=== PATIENT | female | born 1990 | race Two or more races ===

== ENCOUNTER 2021-02-15 18:11 | Emergency (ER) | payer OTHER ==
[~2021-02-15] VITALS: Ht 154.9 cm; Wt 52.8 kg
--- NOTE | 2021-02-15 18:56 | PHYS DOC ---
Past History Past Surgical History: Other Additional Past Surgical Histo: cervical rib Alcohol Use: None General Adult EDM: Chief Complaint: Abdominal pain in HPI: HPI: 31-year-old G1, P0 female that is 21 weeks presents with abdominal pain and increased vaginal discharge. The patient has had intermittent pressure in her abdomen today and decreased feeling movement. 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 The vaginal discharge has not changed character, it is just more than previous. She denies any bleeding. The patient believes she has been having some [facility] contractions but is not sure because she has never been before. She denies fever or chills. She denies dysuria, urinary frequency. Review of Systems: Review of Systems: Constitutional: Denies fever or chills Eyes: Denies change in visual acuity HENT: Denies nasal congestion or sore throat Respiratory: Denies cough or shortness of breath Cardiovascular: Denies chest pain or edema GI: Intermittent abdominal pain, Denies nausea, vomiting, bloody stools or diarrhea : Increased vaginal discharge. Denies dysuria. Musculoskeletal: Denies back pain or joint pain Integument: Denies rash Neurologic: Denies headache, focal weakness or sensory changes Endocrine: Denies polyuria or polydipsia Lymphatic: Denies swollen glands Psychiatric: Denies depression or anxiety Physical Exam: PE: Constitutional: Well developed, well nourished, no acute distress, non-toxic appearance. [] HENT: Normocephalic, atraumatic, bilateral external ears normal, oropharynx moist, no oral exudates, nose normal. [] Eyes: PERRLA, EOMI, conjunctiva normal, no discharge. [] Neck: Normal range of motion, no tenderness, supple, no stridor. [] Cardiovascular:Heart rate regular rhythm, no murmur [] Lungs & Thorax: Bilateral breath sounds clear to auscultation [] Abdomen: Gravid uterus, soft, no tenderness, no masses, no pulsatile masses. [] Skin: Warm, dry, no erythema, no rash. [] Back: No tenderness, no CVA tenderness. [] Extremities: No tenderness, no cyanosis, no clubbing, ROM intact, no edema. [] Neurologic: Alert and oriented X 3, normal motor function, normal sensory function, no focal deficits noted. [] Psychologic: Affect normal, judgement normal, mood normal. [] Current Patient Data: Vital Signs: Vital Signs Date Time Temp Pulse Resp B/P (MAP) Pulse Ox O2 Delivery O2 Flow Rate FiO2 02/15/21 18:20 98.0 77 16 144/82 (102) 96 Room Air EKG: EKG: [] Radiology/Procedures: Radiology/Procedures: [] Heart Score: C/O Chest Pain: N/A Risk Factors: Risk Factors: DM, Current or recent (<one month) smoker, HTN, HLP, family history of CAD, obesity. Risk Scores: Score 0 - 3: 2.5% MACE over next 6 weeks - Discharge Home Score 4 - 6: 20.3% MACE over next 6 weeks - Admit for Clinical Observation Score 7 - 10: 72.7% MACE over next 6 weeks - Early Invasive Strategies Course & Med Decision Making: Course & Med Decision Making Pertinent Labs and Imaging studies reviewed. (See chart for details) heart tones are within normal limits. Her urinalysis is negative for infection. Her wet prep is negative. This is likely Mark Marcos's contractions and normal changes in vaginal discharge. I have told her she should inform her [employer] tomorrow morning and follow the directions as n ecessary. She is stable for discharge at this time. [] Marvin Disclaimer: Marvin Disclaimer: This electronic medical record was generated, in whole or in part, using a voice recognition dictation system. Departure Departure: Impression: Primary Impression: Abdominal pain affecting Disposition: HOME / SELF CARE / HOMELESS Condition: STABLE Referrals: NON,STAFF (PCP) Patient Instructions: Abdominal Pain During , [id number] IRIS HINSON DO Feb 15, 2021 18:56
[2021-02-15 20:02] LABS: BILIRUBIN,URINE NEG (NEG); CLARITY,URINE CLEAR; COLOR,URINE YELLOW; GLUCOSE,URINE NEG (NEG); NITRITE,URINE NEG (NEG); UROBILINOGEN,URINE 0.2 mg/dL (0.2 mg/dL)
[2021-02-15 20:07] LABS: BACTERIA,URINE 0 /HPF (0-FEW)
[2021-02-15 20:08] LABS: SQUAMOUS EPITHELIAL CELL,UR FEW /LPF; WBC,URINE 0 /HPF (0-4)
[2021-02-15 20:44] VITALS: BP 97/64
== END 2021-02-15 20:49 | disposition home or self-care (01) ==
LOC: ER 18:11
DX: O26.892 Other specified pregnancy related conditions, second trimester (principal); R10.9 Unspecified abdominal pain; O46.92 Antepartum hemorrhage, unspecified, second trimester; Z3A.21 21 weeks gestation of pregnancy
CPT/HCPCS: 81001; 81025; 99283; Q0111